=== PATIENT | female | born 1990 | race Caucasian/White ===

== ENCOUNTER 2018-03-14 10:33 | Inpatient (IN) | payer OTHER ==
[2018-03-14] MEDS ORDERED: Lactated Ringer's 1,000 ML IV ONE (11:28)
[2018-03-14 11:53] LABS: BASO % 0.4 % (0.0-2.0); EOS % 0.2 % (0.0-4.0); HEMOGLOBIN 13.3 g/dL (11.0-16.0); LYMPH # 1.9 K/uL (1.0-4.3); LYMPH % 26.9 % (20.0-40.0); MEAN CELL VOLUME 94.7 fL (81.0-99.0); MEAN CORPUSCULAR HEMOGLOBIN 33.7 pg (27.0-31.0); MEAN CORPUSCULAR HGB CONC 35.6 g/dL (33.0-37.0); MEAN PLATELET VOLUME 9.2 fL (7.2-11.7); MONO # 0.6 K/uL (0.0-0.8); MONO % 7.8 % (0.0-10.0); NEUT # 4.7 K/uL (1.8-7.0); NEUT % 64.7 % (50.0-75.0); NRBC % 0.1 % (0.0-2.0); RBC 3.95 Mil/uL (3.80-5.20); RED CELL DISTRIBUTION WIDTH 12.8 % (11.5-14.5); WHITE BLOOD COUNT 7.3 K/uL (4.8-10.8)
[2018-03-14 12:19] LABS: BLOOD UREA NITROGEN 7 mg/dL (7-17); GFR NON-AFRICAN AMERICAN > 60
[2018-03-14 12:20] LABS: CALCIUM 8.1 mg/dl (8.6-10.4)
[2018-03-14] MEDS: Lactated Ringer's 1,000 ML IV SCH ×2 (12:30→19:15)
--- NOTE | 2018-03-14 13:32 | OBHP ---
Datetime: 03/14/2018 11:32 IP Adm Impression: Term, intrauterine IP Admit Plan: Admit to unit; Initiate labor induction protocol Admit Comment, IP Provider: This is a 27 y o at 40.3 weeks gestation (RAVINDER 03/11/18 via LMP ) who presents today for induction of labor. Denies any acute complaints currently. Denies vagin al bleeding, leakage of fluids, or feeling contractions currently. Reports positive movement. D enies headache, dizziness, chest pain, sob, n/v/d/c, abd pain, urinary complaints, or other symptoms. States last sono was on 02/28/18, estimated weight 7 lbs 3 oz. GBS negative as per prenatals. PObHx: in 2009 with no complications PGynHx: last pap smear wnl as per pt; denies hx ovarian cysts, fibroids, or STDs PMHx: denies PSurgHx: denies Allergies: NKDA Meds: vitamins Fam hx: denies Soc hx: denies smoking, EtOH, or illicit drug use Primary OB: Dr. Eden Lewis Pelvic Type - PN: Adequate Extremities - PN: Normal Abdomen - PN: Normal Back - PN: Normal Breast - PN: Normal Lungs - PN: Normal Heart - PN: Normal Neurologic - PN: Normal HEENT - PN: Normal General - PN: Normal FHR - Baseline A Provider: 145 Membranes, Provider: Intact Gestation - Est Wks by US: 40.3 IP Hx Assessment: The History has been Reviewed and is Current EGA AdmitDate IP: 40.3 Vital Signs Provider: Reviewed; Within Normal Limits IP Chief Complaint: Scheduled induction of labor NICHD Variability Prov Fetus A: Moderate 6-25bpm NICHD Accel Fetus A IP Provider: [id number] FHR Category Provider Fetus A: Category I NICHD Decel Fetus A IP Provider: None Genitourinary Exam: Normal DTRs - PN: Normal
--- NOTE | 2018-03-14 13:35 | OBADHP ---
Datetime: 03/14/2018 11:32 Admit Comment, IP Provider: This is a 27 y o at 40.3 weeks gestation (RAVINDER 03/11/18 via LMP ) who presents today for induction of labor. Denies any acute complaints currently. Denies vagin al bleeding, leakage of fluids, or feeling contractions currently. Reports positive movement. D enies headache, dizziness, chest pain, sob, n/v/d/c, abd pain, urinary complaints, or other symptoms. States last sono was on 02/28/18, estimated weight 7 lbs 3 oz. GBS negative as per prenatals. PObHx: in 2009 with no complications PGynHx: last pap smear wnl as per pt; denies hx ovarian cysts, fibroids, or STDs PMHx: denies PSurgHx: denies Allergies: NKDA Meds: vitamins Fam hx: denies Soc hx: denies smoking, EtOH, or illicit drug use Primary OB: Dr. Eden Lewis Pelvic Type - PN: Adequate Extremities - PN: Normal Abdomen - PN: Normal Back - PN: Normal Breast - PN: Normal Lungs - PN: Normal Heart - PN: Normal Neurologic - PN: Normal HEENT - PN: Normal General - PN: Normal FHR - Baseline A Provider: 145 Membranes, Provider: Intact Gestation - Est Wks by US: 40.3 IP Hx Assessment: The History has been Reviewed and is Current Vital Signs Provider: Reviewed; Within Normal Limits IP Chief Complaint: Scheduled induction of labor NICHD Variability Prov Fetus A: Moderate 6-25bpm NICHD Accel Fetus A IP Provider: [id number] FHR Category Provider Fetus A: Category I NICHD Decel Fetus A IP Provider: None Genitourinary Exam: Normal DTRs - PN: Normal EGA AdmitDate IP: 40.3 IP Adm Impression: Term, intrauterine IP Admit Plan: Admit to unit; Initiate labor induction protocol
--- NOTE | 2018-03-14 15:01 | OBPN ---
Datetime: 03/14/2018 14:57 IP Procedures: Sterile Vag Exam IP Progress Plan: Cervical Ripening Contraction Comments Provider: occ FHR - Baseline A Provider: 130 IP Progress Note Comment: pt was examined at bede side ve 50/-3 cervidil placed r/a/b disc NICHD Accel Fetus A IP Provider: 15X15 FHR Category Provider Fetus A: Category I NICHD Variability Prov Fetus A: Moderate 6-25bpm Dilatation, Provider: 1 Effacement, Provider: 50 Station, Provider: -3 Datetime: 03/14/2018 11:32 Membranes, Provider: Intact Gestation - Est Wks by US: 40.3 Vital Signs Provider: Reviewed; Within Normal Limits NICHD Decel Fetus A IP Provider: None
[2018-03-15] MEDS ORDERED: Nalbuphine HCL 10 mg/ml Ampule IVP ONE (00:17)
[2018-03-15] MEDS ORDERED: Nalbuphine HCL 10 mg/ml Ampule ONE (00:44)
[2018-03-15] MEDS ORDERED: Oxytocin 30 UNIT 30 UNITS/500 ML BAG IV SCH (03:30)
[2018-03-15] MEDS ORDERED: Oxytocin 30 UNIT 30 UNITS/500 ML BAG IV ONE ×2 (03:49→09:55)
[2018-03-15] MEDS ORDERED: Lidocaine 2% MPF (5 ml) Inj ONE (07:47)
--- NOTE | 2018-03-15 09:17 | OBADHP ---
Datetime: 03/14/2018 14:57 FHR - Baseline A Provider: 130 Contraction Comments Provider: occ IP Chief Complaint: Scheduled induction of labor NICHD Variability Prov Fetus A: Moderate 6-25bpm NICHD Accel Fetus A IP Provider: [id number] FHR Category Provider Fetus A: Category I Dilatation, Provider: 1 Effacement, Provider: 50 Station, Provider: -3 EGA AdmitDate IP: 40.3 IP Adm Impression: Term, intrauterine IP Admit Plan: Admit to unit; Initiate labor induction protocol Datetime: 03/14/2018 11:32 Admit Comment, IP Provider: This is a 27 y o at 40.3 weeks gestation (RAVINDER 03/11/18 via LMP ) who presents today for induction of labor. Denies any acute complaints currently. Denies vagin al bleeding, leakage of fluids, or feeling contractions currently. Reports positive movement. D enies headache, dizziness, chest pain, sob, n/v/d/c, abd pain, urinary complaints, or other symptoms. States last sono was on 02/28/18, estimated weight 7 lbs 3 oz. GBS negative as per prenatals. PObHx: in 2009 with no complications PGynHx: last pap smear wnl as per pt; denies hx ovarian cysts, fibroids, or STDs PMHx: denies PSurgHx: denies Allergies: NKDA Meds: vitamins Fam hx: denies Soc hx: denies smoking, EtOH, or illicit drug use Primary OB: Dr. Eden Brown @ 40+ wks post edc iol admit npo, ivf cervil cotn toco adn emf analges agree with above yue brown
--- NOTE | 2018-03-15 09:37 | OBPN ---
Datetime: 03/15/2018 09:19 IP Progress Impression: Normal progression of labor IP Progress Plan: Continue present management Contraction Comments Provider: q2-3 min FHR - Baseline A Provider: 120 Gestation - Est Wks by US: 40.4 Presentation-Admit: Vertex IP Progress Note Comment: pt seen and examiend c/o prssure denies pain medciaotn vss efm cat i tooc q 2-3 min pitocn 8mu/min a/p @ 40.4 wks in active labor start pushign anticeate Vital Signs Provider: Reviewed; Within Normal Limits FHR Category Provider Fetus A: Category I NICHD Variability Prov Fetus A: Moderate 6-25bpm Dilatation, Provider: 10 Effacement, Provider: 100 Station, Provider: 0 NICHD Decel Fetus A IP Provider: None
[2018-03-15] MEDS ORDERED: Oxycodone/Acetaminophen 5/325 mg Tab PO PRN (09:55)
--- NOTE | 2018-03-15 09:57 | OBDS ---
MATERNAL INFORMATION Provider Comments: pt was fully dilated and pushig, atrumatic, spontaneous delivery of head, no nuch al cord noted. atrumatic, spontanoeus delivery of anterior followed by positeior shouylde follwed by delivery of the body . both oral and nasal passages of romina baby were bulb sctuiond. ubmicls cord wsa calmped and cut. bab yhadned to mother on abodmen. cord blood and cord gasese colelcted adn sent x 2. Spontaneous deliver of intact placenta with membranes. fundus firm, lower uteiren segment boggy. me thergine IM x 1. Good hemostais, intact perienum, no copicaitns live femlae infant cephaic presentation abspr 9,9 ebl 200ml LABOR SUMMARY EDC: 03/11/2018 00:00 No. Babies in Womb: 1 Attempted: No LABOR INFORMATION Cervical Ripening Agents: Cervidil removed Group B Beta Strep: Negative MEMBRANES Membranes Rupture Method: Artificial Rupture of Membranes: 03/15/2018 08:37 Length of Rupture (hrs): 1.08 Amniotic Fluid Color: Clear Amniotic Fluid Amount: Moderate Amniotic Fluid Odor: None STAGES OF LABOR Stage 3 hrs: 0 Stage 3 min: 4 BABY A INFORMATION Infant Delivery Date/Time: 03/15/2018 09:42 Method of Delivery: Vaginal Born in Route : No : N/A Forceps: N/A Vacuum Extraction: N/A Shoulder Dystocia : No SHOULDER DYSTOCIA BABY A Infant Delivery Date/Time: 03/15/2018 09:42 PRESENTATION/POSITION BABY A Presentation: Cephalic Cephalic Presentation: Vertex Vertex Position: Right Occipital Anterior Breech Presentation: N/A PLACENTA INFORMATION BABY A Placenta Delivery Time : 03/15/2018 09:46 Placenta Method of Delivery: Expressed Placenta Status: Delivered INFORMATION BABY A Gestational Age at Delivery: 40.4 Gestational Status: Term Infant Outcome : Liveborn Infant Condition : Stable Infant Sex: Female IDENTIFICATION/MEDS BABY A ID Band Number: [id number] Sensor Number: [id number] CORD INFORMATION BABY A Nuchal Cord : N/A Infant Suction: Mouth; Nose
[2018-03-15] MEDS ORDERED: Oxycodone/Acetaminophen 5/325 mg Tab ONE (12:02)
[2018-03-15] MEDS: Multiple Vitamins Tab PO SCH (17:59)
[2018-03-15] MEDS: Benzocaine/Menthol 20%-0.5% Topical Spray (60 ml) TOP PRN (18:01)
[2018-03-15 21:56] LABS: URINE BACTERIA FEW (<OCC); URINE BILIRUBIN NEGATIVE (NEGATIVE); URINE BLOOD 3+ (NEGATIVE); URINE COLOR Red (YELLOW); URINE GLUCOSE (UA) NORMAL (Normal); URINE LEUKOCYTE ESTERASE 1+ Leu/uL (Negative); URINE PROTEIN 2+ mg/dL (NEGATIVE); URINE UROBILINOGEN NORMAL mg/dL (0.2-1.0)
[2018-03-15 22:09] LABS: URINE CLARITY SLIGHT-CLOUDY (Clear)
[2018-03-16 07:55] LABS: BASO % 0.3 % (0.0-2.0); EOS % 0.2 % (0.0-4.0); HEMOGLOBIN 11.7 g/dL (11.0-16.0); LYMPH # 2.9 K/uL (1.0-4.3); LYMPH % 25.1 % (20.0-40.0); MEAN CORPUSCULAR HEMOGLOBIN 33.2 pg (27.0-31.0); MEAN CORPUSCULAR HGB CONC 34.9 g/dL (33.0-37.0); MEAN PLATELET VOLUME 9.3 fL (7.2-11.7); MONO # 0.9 K/uL (0.0-0.8); MONO % 7.8 % (0.0-10.0); NEUT # 7.6 K/uL (1.8-7.0); NEUT % 66.6 % (50.0-75.0); RBC 3.54 Mil/uL (3.80-5.20); RED CELL DISTRIBUTION WIDTH 12.5 % (11.5-14.5)
[2018-03-16 08:02] LABS: WHITE BLOOD COUNT 11.3 K/uL (4.8-10.8)
[2018-03-16] MEDS: Multiple Vitamins Tab PO SCH (10:16)
[2018-03-17 00:35] VITALS: O2SAT 98
[2018-03-17 09:06] VITALS: RESP 18
[2018-03-17] MEDS ORDERED: Influenza Vaccine 60 MCG/0.5 ML SYR (3 yr & up) IM ONE (10:00)
[2018-03-17] MEDS: Benzocaine/Menthol 20%-0.5% Topical Spray (60 ml) TOP PRN (10:07)
[2018-03-17] MEDS: Multiple Vitamins Tab PO SCH (10:08)
[2018-03-17 16:09] VITALS: BP 109/66; PULSE 80; TEMP 98.1
== END 2018-03-17 12:09 | disposition home or self-care (01) ==
LOC: C.EROB 10:33 → C.4D 11:23 → C.4M 03-15 12:30
PROVIDERS: ADMIT Obstetrics & Gynecology; ATTEND Obstetrics & Gynecology
PROC: 10E0XZZ Delivery of Products of Conception, External Approach (ICD-10-PCS; principal; 2018-03-14)
DX: O80 Encounter for full-term uncomplicated delivery (principal); Z37.0 Single live birth; Z3A.40 40 weeks gestation of pregnancy